=== PATIENT | female | born 1960 | race Hispanic/Latino ===

== ENCOUNTER 2018-01-04 07:09 | Emergency (ER) | payer OTHER ==
[~2018-01-04 07:09] MED LIST: BACL20TA PO; GLYB5TAB8 PO; ISOS30TA6 PO; LOSA100T29 PO; METF10004 PO; METO25TA6 PO; OMEP40CA37 PO
== END 2018-01-04 08:18 | disposition home or self-care (01) ==
LOC: EDH 07:09
DX: J02.9 Acute pharyngitis, unspecified (principal); E11.9 Type 2 diabetes mellitus without complications; I10 Essential (primary) hypertension; Z88.0 Allergy status to penicillin; Z98.890 Other specified postprocedural states
CPT/HCPCS: 71045; 87880

== ENCOUNTER → 2018-01-21 | Outpatient (CLI) | payer OTHER ==
[~2018-01-21] VITALS: Ht 160 cm; Wt 104.3 kg
[~2018-01-21] MED LIST changes: +ASPI-1197 PO; +BENZ-51 PO; +GLIM4TAB3 PO; +ISOS10TA2 PO; +LOSA25TA21 PO; +REGADENOSON 0.4 MG/5 ML PF SYG IVP SCH; +SIMV20TA6 PO; +SIMV5TAB6 PO
== END | disposition home or self-care (01) ==
LOC: SHCH 07:51
PROVIDERS: ATTEND Internal Medicine Cardiovascular Disease
DX: I25.10 Atherosclerotic heart disease of native coronary artery without angina pectoris (principal)
CPT/HCPCS: 78452; 93017; 96374; A9500 ×2; J2785

== ENCOUNTER → 2018-01-23 | Outpatient (CLI) | payer OTHER ==
[~2018-01-23] MED LIST changes: -REGADENOSON 0.4 MG/5 ML PF SYG IVP SCH
== END | disposition home or self-care (01) ==
LOC: SHCH 14:45
PROVIDERS: ATTEND Internal Medicine Cardiovascular Disease
DX: I10 Essential (primary) hypertension (principal)
CPT/HCPCS: 93306

== ENCOUNTER 2018-02-09 20:29 | Observation (INO) | payer OTHER ==
[~2018-02-09] VITALS: Ht 160 cm; Wt 106.2 kg
[~2018-02-09 20:29] MED LIST changes: -ASPI-1197 PO; -BENZ-51 PO; -GLIM4TAB3 PO; -ISOS10TA2 PO; -LOSA25TA21 PO; -SIMV20TA6 PO; -SIMV5TAB6 PO
[2018-02-09] MEDS ORDERED: ONDANSETRON HCL MDV 20ML 2 MG/ML VIAL ONE (23:40)
[2018-02-09] MEDS ORDERED: METHYLPREDNISOLONE SOD SUCC 40MG/ML 1ML ONE (23:40)
[2018-02-09] MEDS ORDERED: MORPHINE SULFATE 2 MG/ML 1ML SYG ONE (23:41)
[2018-02-10] MEDS ORDERED: CLONIDINE HCL 0.1 MG TABLET ONE (02:28)
[2018-02-10] MEDS ORDERED: ACETAMINOPHEN 325 MG TAB ONE (02:28)
[2018-02-10 02:58] VITALS: BP 163/89
[2018-02-10] MEDS ORDERED: ACETAMINOPHEN 325 MG TAB PO PRN (04:30)
[2018-02-10] MEDS ORDERED: GLUCAGON 1MG KIT 1 MG ML IM PRN (04:30)
[2018-02-10] MEDS ORDERED: LIDOCAINE HCL-MPF 1% 2ML VIAL IJ PRN (04:30)
[2018-02-10] MEDS ORDERED: POTASSIUM CHLORIDE 10% ELIXIR 20 MEQ/15 ML UDCUP PO PRN (04:30)
[2018-02-10] MEDS ORDERED: POTASSIUM CHLORIDE 20MEQ/100ML 100 ML IV PRN (04:30)
[2018-02-10] MEDS ORDERED: DEXTROSE 50%-WATER 50 ML DISP.SYRIN IV PRN (04:30)
[2018-02-10] MEDS ORDERED: POTASSIUM CHLORIDE 20 MEQ ERTAB PO PRN (04:30)
[2018-02-10] MEDS ORDERED: IPRATROPIUM/ALBUTEROL SULFATE 3 ML SOLUTION IH PRN (04:30)
[2018-02-10 05:34] LABS: HEMATOCRIT 38.2 % (36-48); MEAN CORPUSCULAR HGB CONC 33.9 g/dL (32.0-36.0); MEAN CORPUSCULAR VOLUME 94.2 fL (79-99); PLATELET COUNT (AUTO) 149 K/uL (130-400); RED BLOOD CELL COUNT(AUTO) 4.06 MIL/uL (4.00-5.50); RED CELL DISTRIBUTION WIDTH 14.3 % (11.0-15.5); WHITE BLOOD COUNT (AUTO) 7.4 K/uL (4.8-10.8)
[2018-02-10 05:47] LABS: CREATININE 1.4 mg/dL (0.5-1.5)
[2018-02-10 05:56] LABS: POTASSIUM 6.5 mmol/L (3.5-5.1)
[2018-02-10] MEDS: INSULIN R PO SS1 SQ SCH ×4 (06:44→20:31)
[2018-02-10] MEDS ORDERED: SODIUM BICARB 8.4% 50ML SYRINGE IVP SCH (07:00)
[2018-02-10] MEDS ORDERED: CALCIUM GLUCONATE 1 GM/10 ML VIAL IV SCH (07:00)
[2018-02-10] MEDS ORDERED: INSULIN HUMULIN R 100 UNIT/ML 3ML IV SCH (07:00)
[2018-02-10] MEDS ORDERED: CALCIUM GLUCONATE 1 GM in SODIUM CHLORIDE 0.9% 50 ML IV SCH (07:30)
[2018-02-10 08:00] VITALS: BP 178/92
[2018-02-10] MEDS: FAMOTIDINE 20MG TAB 20 MG TAB PO SCH (08:21)
[2018-02-10] MEDS: KETOROLAC TROMETHAMINE 15MG/ML IV PRN (08:23)
[2018-02-10 10:24] LABS: CREATININE 1.4 mg/dL (0.5-1.5)
[2018-02-10] MEDS: CLONIDINE HCL 0.1 MG TABLET PO PRN (11:46)
[2018-02-10 12:00] VITALS: BP 162/94
[2018-02-10 16:00] VITALS: BP 166/84
[2018-02-10 19:46] VITALS: BP 135/67
[2018-02-10] MEDS ORDERED: BENZ-51 PO (20:05)
[2018-02-10] MEDS ORDERED: METF10004 PO (20:05)
[2018-02-10] MEDS ORDERED: ASPI-1197 PO (20:05)
[2018-02-10] MEDS ORDERED: LOSA100T29 PO (20:05)
[2018-02-10] MEDS ORDERED: METO25TA6 PO (20:05)
[2018-02-10] MEDS ORDERED: GLIM4TAB3 PO (20:05)
[2018-02-10] MEDS ORDERED: GLYB5TAB8 PO (20:05)
[2018-02-10] MEDS ORDERED: SIMV20TA6 PO (20:05)
[2018-02-10] MEDS ORDERED: ISOS30TA6 PO (20:05)
[2018-02-10 23:46] VITALS: BP 145/80
[2018-02-11 04:00] VITALS: BP 161/88
[2018-02-11 04:02] LABS: CREATININE 1.2 mg/dL (0.5-1.5)
[2018-02-11] MEDS: INSULIN R PO SS1 SQ SCH ×4 (07:25→21:40)
[2018-02-11 08:00] VITALS: BP 182/96
[2018-02-11] MEDS ORDERED: BENZONATATE 100 MG CAPSULE PO PRN (09:45)
[2018-02-11] MEDS: FAMOTIDINE 20MG TAB 20 MG TAB PO SCH (10:48)
[2018-02-11] MEDS: CLONIDINE HCL 0.1 MG TABLET PO PRN (10:52)
[2018-02-11 11:44] VITALS: BP 180/98
[2018-02-11 16:00] VITALS: BP 154/99
[2018-02-11] MEDS: METFORMIN HCL 500 MG TABLET PO SCH (17:51)
[2018-02-11] MEDS: GLIMEPIRIDE 2 MG TABLET PO SCH (17:51)
[2018-02-11 19:54] VITALS: BP 133/74
[2018-02-11] MEDS ORDERED: ATORVASTATIN CALCIUM 10 MG TABLET PO SCH (21:00)
[2018-02-11] MEDS: GLYBURIDE 5 MG TABLET PO SCH (21:42)
[2018-02-11] MEDS: KETOROLAC TROMETHAMINE 15MG/ML IV PRN (21:43)
[2018-02-11 23:37] VITALS: BP 107/58
[2018-02-12 03:44] VITALS: BP 143/83
[2018-02-12] MEDS: INSULIN R PO SS1 SQ SCH ×2 (05:57→11:30)
[2018-02-12 08:00] VITALS: BP 151/85
[2018-02-12] MEDS: GLIMEPIRIDE 2 MG TABLET PO SCH (08:00)
[2018-02-12] MEDS ORDERED: ISOSORBIDE MONO 30MG TAB SR PO SCH (09:00)
[2018-02-12] MEDS ORDERED: ASPIRIN 81MG TAB.CHEW PO SCH (09:00)
[2018-02-12] MEDS ORDERED: LOSARTAN 100 MG TABLET PO SCH (09:00)
[2018-02-12] MEDS ORDERED: METOPROLOL TARTRATE 25 MG TAB PO SCH (09:00)
[2018-02-12] MEDS: METFORMIN HCL 500 MG TABLET PO SCH (09:28)
[2018-02-12] MEDS: GLYBURIDE 5 MG TABLET PO SCH (09:30)
[2018-02-12] MEDS: FAMOTIDINE 20MG TAB 20 MG TAB PO SCH (09:32)
== END 2018-02-12 12:20 | disposition home or self-care (01) ==
LOC: EDH 20:29 → EDHIP 02-10 02:05 → 3BH 02-10 02:35
PROVIDERS: ADMIT Internal Medicine; ATTEND Internal Medicine
DX: S02.2XXA Fracture of nasal bones, initial encounter for closed fracture (principal); S01.511A Laceration without foreign body of lip, initial encounter; S01.21XA Laceration without foreign body of nose, initial encounter; S14.129A Central cord syndrome at unspecified level of cervical spinal cord, initial encounter; M48.02 Spinal stenosis, cervical region; M54.12 Radiculopathy, cervical region; E11.9 Type 2 diabetes mellitus without complications; I10 Essential (primary) hypertension; E78.5 Hyperlipidemia, unspecified; I25.10 Atherosclerotic heart disease of native coronary artery without angina pectoris; W01.0XXA Fall on same level from slipping, tripping and stumbling without subsequent striking against object, initial encounter; Y93.89 Activity, other specified; Y92.89 Other specified places as the place of occurrence of the external cause; Y99.8 Other external cause status; Z88.0 Allergy status to penicillin; Z95.1 Presence of aortocoronary bypass graft
CPT/HCPCS: 36415 ×3; 70450; 70486; 72125; 72141; 80048 ×3; 82948 ×9; 85027; 93005; 94664; 96365; 96372 ×2; 96375; 96376; 97161; 99285; G0378 ×58; G0480; G8978; G8979; G8980; G8981; G8982; G8983; J0610; J1815 ×8; J1885 ×2; J2920; J3490

== ENCOUNTER → 2018-02-17 | Outpatient (CLI) | payer OTHER ==
[~2018-02-17] MED LIST changes: +ASPI-1197 PO; -BACL20TA PO; +BENZ-51 PO; +GLIM4TAB3 PO; +ISOS10TA2 PO; +LOSA25TA21 PO; -OMEP40CA37 PO; +SIMV20TA6 PO; +SIMV5TAB6 PO
== END | disposition home or self-care (01) ==
LOC: RAH 14:58
PROVIDERS: ATTEND Nurse Practitioner Adult Health
DX: Z01.818 Encounter for other preprocedural examination (principal)
CPT/HCPCS: 71046

== ENCOUNTER → 2018-02-26 | Outpatient (CLI) | payer OTHER | END | disposition home or self-care (01) | LOC: RAH 10:47 | PROVIDERS: ATTEND Nurse Practitioner Adult Health | DX: M47.894 Other spondylosis, thoracic region (principal); M48.04 Spinal stenosis, thoracic region | CPT/HCPCS: 72146 ==

== ENCOUNTER 2018-03-17 10:00 | Inpatient (IN) | payer OTHER ==
[~2018-03-17] VITALS: Ht 160 cm; Wt 104.6 kg
[2018-03-17 09:52] LABS: BASOPHILS % (AUTO) 0.9 % (0.0-5.0); EOSINOPHILS % (AUTO) 3.6 % (0.0-8.0); HEMATOCRIT 35.3 % (36-48); LYMPHOCYTES % (AUTO) 28.4 % (21.0-51.0); MEAN CORPUSCULAR HEMOGLOBIN 33.2 pg (27.0-33.0); MEAN CORPUSCULAR HGB CONC 34.3 g/dL (32.0-36.0); MEAN CORPUSCULAR VOLUME 96.9 fL (79-99); MONOCYTES % (AUTO) 7.9 % (3.0-13.0); NEUTROPHILS % (AUTO) 59.2 % (40.0-77.0); PLATELET COUNT (AUTO) 170 K/uL (130-400); RED BLOOD CELL COUNT(AUTO) 3.64 MIL/uL (4.00-5.50); RED CELL DISTRIBUTION WIDTH 14.2 % (11.0-15.5); WHITE BLOOD COUNT (AUTO) 5.5 K/uL (4.8-10.8)
[~2018-03-17 10:00] MED LIST changes: -BENZ-51 PO; -GLIM4TAB3 PO; -GLYB5TAB8 PO; -ISOS10TA2 PO; -ISOS30TA6 PO; -LOSA100T29 PO; -LOSA25TA21 PO; -METO25TA6 PO; -SIMV20TA6 PO; -SIMV5TAB6 PO
[2018-03-17 10:10] LABS: CREATININE 1.5 mg/dL (0.5-1.5); POTASSIUM 5.1 mmol/L (3.5-5.1)
[2018-03-17 10:41] VITALS: BP 160/70
[2018-03-17] MEDS ORDERED: SIMV5TAB6 PO (10:49)
[2018-03-17] MEDS ORDERED: GLYB5TAB8 PO (10:49)
[2018-03-17] MEDS ORDERED: ISOS10TA2 PO (10:49)
[2018-03-17] MEDS ORDERED: LOSA25TA21 PO (10:49)
[2018-03-19] VITALS (17 sets, daily range): BP systolic 125–151; BP diastolic 60–88
[2018-03-19] MEDS: CLINDAMYCIN 900 MG/D5% WATER 50 ML IV SCH ×3 (06:00→20:19)
[2018-03-19] MEDS ORDERED: SODIUM CHLORIDE 0.9% 1000ML 1,000 ML IV ONE (06:38)
[2018-03-19] MEDS ORDERED: BACITRACIN 50,000 UNIT VIAL ONE (06:39)
[2018-03-19] MEDS ORDERED: MICROFIBRILLAR COLLAGEN 1 GM PACKAGE TP ONE (06:39)
[2018-03-19] MEDS ORDERED: THROMBIN-JMI 20000 UNIT KIT TP ONE (06:39)
[2018-03-19] MEDS ORDERED: SODIUM CHLORIDE 0.9% 10 ML VIAL ONE (06:49)
[2018-03-19] MEDS ORDERED: LIDOCAINE PF 2% 5ML ABBOJECT ONE (06:55)
[2018-03-19] MEDS ORDERED: DEXAMETHASONE SOD PHOSPHATE 10MG/ML 1ML VIAL ONE ×2 (06:55→11:01)
[2018-03-19] MEDS ORDERED: GLYCOPYRROLATE 0.2 MG/ML 5 ML VIAL ONE (06:55)
[2018-03-19] MEDS ORDERED: NEOSTIGMINE 5MG/5ML SYR IV ONE (06:55)
[2018-03-19] MEDS ORDERED: PROPOFOL 10 MG/ML 20ML VIAL IV ONE (06:56)
[2018-03-19] MEDS ORDERED: FENTANYL CITRATE PF 50 MCG/1 ML 2ML VIAL ONE ×3 (06:56→11:00)
[2018-03-19] MEDS ORDERED: MIDAZOLAM HCL 1 MG/ML 2ML VIAL ONE (06:56)
[2018-03-19] MEDS ORDERED: BUPIVACAINE/PF 0.25% 30ML VIAL IJ ONE (07:02)
[2018-03-19] MEDS ORDERED: EPINEPHRINE 1 MG/ML AMPULE ONE (07:03)
[2018-03-19] MEDS ORDERED: MANNITOL 20% 500ML BAG 500 ML IV ONE (08:12)
[2018-03-19] MEDS ORDERED: LIDOCAINE HCL 4% LTA SOL 4 ML VIAL ONE (10:30)
[2018-03-19] MEDS ORDERED: SUCCINYLCHOLINE CHLORIDE 20 MG/ML 10 ML VIAL ONE (11:00)
[2018-03-19] MEDS ORDERED: ROCURONIUM BROMIDE 10MG/1ML 5ML VL ONE ×2 (11:00)
[2018-03-19] MEDS ORDERED: ONDANSETRON HCL MDV 20ML 2 MG/ML VIAL ONE ×2 (11:01)
[2018-03-19] MEDS ORDERED: ARTIFICIAL TEARS 3.5 GM OINTMENT ONE (11:01)
[2018-03-19] MEDS ORDERED: METOCLOPRAMIDE 10 MG/2 ML VIAL ONE (11:01)
[2018-03-19] MEDS ORDERED: MORPHINE SULFATE 2 MG/ML 1ML SYG IVP PRN (12:00)
[2018-03-19] MEDS ORDERED: SODIUM CHLORIDE 0.9% 10 ML VIAL IVP PRN (12:00)
[2018-03-19] MEDS ORDERED: PROMETHAZINE HCL 25 MG/ML 1ML AMPULE IM PRN (12:00)
[2018-03-19] MEDS ORDERED: DEXAMETHASONE SOD PHOSPHATE 4 MG/ML 1ML VIAL IVP SCH (12:00)
[2018-03-19] MEDS ORDERED: HYDROCODONE/ACETAMINOPHEN 5/325 MG TAB PO PRN (12:00)
[2018-03-19] MEDS ORDERED: CLINDAMYCIN 900 MG/D5% WATER 50 ML IV SCH (12:00)
[2018-03-19] MEDS ORDERED: MEPERIDINE-PF 25 MG/ML SYG ONE ×2 (12:24→12:37)
[2018-03-19] MEDS: LACTATED RINGERS 1000ML 1,000 ML IV SCH (13:33)
[2018-03-19] MEDS ORDERED: INSULIN HUMULIN R 100 UNIT/ML 3ML SQ SCH (16:30)
[2018-03-19] MEDS: INSULIN HUMULIN R 100 UNIT/ML 3ML SQ SCH ×2 (16:30→21:00)
[2018-03-19] MEDS ORDERED: GLYBURIDE 5 MG TABLET ONE (16:42)
[2018-03-19] MEDS: GLYBURIDE 5 MG TABLET PO SCH (16:52)
[2018-03-19] MEDS: METFORMIN HCL 500 MG TABLET PO SCH (16:52)
[2018-03-19] MEDS ORDERED: ATORVASTATIN CALCIUM 10 MG TABLET PO SCH (17:00)
[2018-03-19] MEDS: DEXAMETHASONE SOD PHOSPHATE 4 MG/ML 1ML VIAL IVP SCH (20:19)
[2018-03-20] VITALS: BP 138/76
[2018-03-20] MEDS: DEXAMETHASONE SOD PHOSPHATE 4 MG/ML 1ML VIAL IVP SCH ×2 (00:52→07:38)
[2018-03-20] MEDS: GLYBURIDE 5 MG TABLET PO SCH ×2 (00:52→07:40)
[2018-03-20] MEDS: CLINDAMYCIN 900 MG/D5% WATER 50 ML IV SCH (00:52)
[2018-03-20] MEDS: LACTATED RINGERS 1000ML 1,000 ML IV SCH (01:20)
[2018-03-20 04:00] VITALS: BP 143/71
[2018-03-20] MEDS: INSULIN HUMULIN R 100 UNIT/ML 3ML SQ SCH (07:30)
[2018-03-20 07:38] VITALS: BP 146/79
[2018-03-20] MEDS: METFORMIN HCL 500 MG TABLET PO SCH (07:38)
[2018-03-20] MEDS ORDERED: ASPIRIN 81MG TAB.CHEW PO SCH (09:00)
[2018-03-20] MEDS ORDERED: LOSARTAN 50 MG TABLET PO SCH (09:00)
[2018-03-20] MEDS ORDERED: ISOSORBIDE MONO 30MG TAB SR PO SCH (09:00)
== END 2018-03-20 09:45 | disposition home or self-care (01) | DRG 472 ==
LOC: EDSTATUS 10:00 → OBSVTOIN 03-19 05:52 → DAHIP 03-19 05:52 → EDSTATUS 03-19 10:00 → 4BH 03-19 12:57
PROVIDERS: ADMIT Neurological Surgery; ATTEND Neurological Surgery
PROC: 0RG20K0 Fusion of 2 or more Cervical Vertebral Joints with Nonautologous Tissue Substitute, Anterior Approach, Anterior Column, Open Approach (ICD-10-PCS; principal; 2018-03-19 08:24)
PROC: 4A11X4G Monitoring of Peripheral Nervous Electrical Activity, Intraoperative, External Approach (ICD-10-PCS; 2018-03-19 08:24)
DX: M48.02 Spinal stenosis, cervical region (principal); G95.9 Disease of spinal cord, unspecified; Z68.41 Body mass index [BMI] 40.0-44.9, adult; G82.20 Paraplegia, unspecified; S14.129A Central cord syndrome at unspecified level of cervical spinal cord, initial encounter; S02.2XXA Fracture of nasal bones, initial encounter for closed fracture; E11.9 Type 2 diabetes mellitus without complications; I10 Essential (primary) hypertension; I25.10 Atherosclerotic heart disease of native coronary artery without angina pectoris; E66.9 Obesity, unspecified; M25.78 Osteophyte, vertebrae; Z95.1 Presence of aortocoronary bypass graft; Z88.0 Allergy status to penicillin
CPT/HCPCS: 36415; 72020; 80048; 82948; 85025; A4344; J0171; J0330; J1100; J2001; J2175; J2250; J2704; J2710; J2765; J3010; J3490; J7030; J7120

== ENCOUNTER → 2018-04-21 | Outpatient (CLI) | payer OTHER ==
[~2018-04-21] MED LIST changes: +GLYB5TAB8 PO; +ISOS10TA2 PO; +LOSA25TA21 PO; +SIMV5TAB6 PO
== END | disposition home or self-care (01) ==
LOC: OIH 08:48
PROVIDERS: ATTEND Neurological Surgery
DX: M47.892 Other spondylosis, cervical region (principal); M43.22 Fusion of spine, cervical region
CPT/HCPCS: 72040

== ENCOUNTER → 2019-11-19 | Outpatient (CLI) | payer OTHER ==
[~2019-11-19] MED LIST changes: -LOSA25TA21 PO; +LOSA25TA41 PO; +METF-446 PO; -METF10004 PO; +SIMV5TAB58 PO; -SIMV5TAB6 PO
== END | disposition home or self-care (01) ==
LOC: RAH 12:38
PROVIDERS: ATTEND Nurse Practitioner Adult Health
DX: R07.81 Pleurodynia (principal)
CPT/HCPCS: 71100

== ENCOUNTER 2019-11-30 08:11 | Emergency (ER) | payer OTHER ==
[2019-11-30] MEDS ORDERED: DIAZEPAM 5 MG TABLET ONE (08:53)
[2019-11-30] MEDS ORDERED: KETOROLAC TROMETHAMINE 60 MG/2 ML VIAL ONE (08:53)
[2019-11-30 09:43] LABS: APPEARANCE,URINE Clear (CLEAR); BILIRUBIN,URINE Negative (NEGATIVE); COLOR,URINE Yellow (YELLOW); GLUCOSE, URINE (UA) TRACE mg/dL (NEGATIVE); KETONES,URINE Negative (NEGATIVE); LEUKOCYTE ESTERASE ,URINE Negative (NEGATIVE); NITRATE,URINE Negative (NEGATIVE); OCCULT BLOOD,URINE Negative (NEGATIVE); PH,URINE 6.5 (5.0-8.0); PROTEIN,URINE Trace mg/dL (NEGATIVE); UROBILINOGEN,URINE 0.2 mg/dL (0.2-1.0)
[2019-11-30 09:54] LABS: BACTERIA,URINE Rare /HPF (None Seen); RBC,URINE 0-1 /HPF (0-1); SQUAMOUS EPITHELIAL CELL,UR Rare /HPF (0-2); WBC,URINE 0-1 /HPF (0-1)
== END 2019-11-30 10:58 | disposition home or self-care (01) ==
LOC: EDH 08:11
DX: M54.5 Low back pain (principal); E11.9 Type 2 diabetes mellitus without complications; I10 Essential (primary) hypertension; Z88.0 Allergy status to penicillin
CPT/HCPCS: 81001; 93005; 96372; 99283; J1885

== ENCOUNTER → 2019-12-02 | Outpatient (CLI) | payer OTHER | END | disposition home or self-care (01) | LOC: RAH 14:40 | PROVIDERS: ATTEND Nurse Practitioner Adult Health | DX: M48.04 Spinal stenosis, thoracic region (principal); M51.24 Other intervertebral disc displacement, thoracic region; M51.34 Other intervertebral disc degeneration, thoracic region | CPT/HCPCS: 72146 ==

== ENCOUNTER → 2019-12-28 | Outpatient (CLI) | payer OTHER | END | disposition home or self-care (01) | LOC: RAH 11:29 | PROVIDERS: ATTEND Nurse Practitioner Adult Health | DX: R10.2 Pelvic and perineal pain (principal) | CPT/HCPCS: 76856 ==

== ENCOUNTER → 2021-02-21 | Outpatient (CLI) | payer OTHER | END | disposition home or self-care (01) | LOC: RAH 08:42 | PROVIDERS: ATTEND Internal Medicine Gastroenterology | DX: K74.60 Unspecified cirrhosis of liver (principal); Z90.49 Acquired absence of other specified parts of digestive tract | CPT/HCPCS: 76700; 93975 ==

== ENCOUNTER → 2023-02-15 | Outpatient (CLI) | payer OTHER ==
[~2023-02-15] MED LIST changes: +IOHEXOL-350 50ML VIAL IV ONE
== END | disposition home or self-care (01) ==
LOC: RAH 14:41
PROVIDERS: ATTEND Internal Medicine
DX: G31.89 Other specified degenerative diseases of nervous system (principal); R26.89 Other abnormalities of gait and mobility
CPT/HCPCS: 70470; Q9967

== ENCOUNTER → 2023-07-29 | Outpatient (CLI) | payer OTHER ==
[~2023-07-29] MED LIST changes: -IOHEXOL-350 50ML VIAL IV ONE
== END | disposition home or self-care (01) ==
LOC: RAH 14:02
PROVIDERS: ATTEND Internal Medicine
DX: M79.89 Other specified soft tissue disorders (principal)
CPT/HCPCS: 93925

== ENCOUNTER → 2024-01-28 | Outpatient (CLI) | payer OTHER | END | disposition home or self-care (01) | LOC: RAH 08:36 | PROVIDERS: ATTEND Internal Medicine | DX: R10.11 Right upper quadrant pain (principal); K76.89 Other specified diseases of liver; Z90.49 Acquired absence of other specified parts of digestive tract | CPT/HCPCS: 76705 ==

== ENCOUNTER → 2024-03-27 | Outpatient (CLI) | payer OTHER ==
[2024-03-27] MEDS: REGADENOSON 0.4 MG/5 ML PF SYG IVP ONE (15:49)
== END ==
LOC: SHCH 08:54
PROVIDERS: ATTEND Internal Medicine Cardiovascular Disease
DX: I25.10 Atherosclerotic heart disease of native coronary artery without angina pectoris (principal)
CPT/HCPCS: 78452; 96374; 93017; J2785; A9500 ×2